=== PATIENT | male | born 1955 | race Caucasian/White ===

== ENCOUNTER 2022-10-31 10:00 | Outpatient (CLI) | payer SELFPAY ==
[2022-10-31 10:35] VITALS: BMI 28.0
[2022-10-31 10:36] VITALS: BP 162/91; PULSE 71; RESP 20; TEMP 36.5; O2SAT 97
== END 2022-10-31 11:16 | disposition home or self-care (01) ==
LOC: UTC.OUT 10:05
PROVIDERS: PCP Family Medicine; Visit Provider Nurse Practitioner Family
DX: Z02.4 Encounter for examination for driving license (principal)